=== PATIENT | female | born 1995 | race Caucasian/White ===

== ENCOUNTER 2022-04-17 10:31 | Emergency (ER) | payer OTHER ==
[~2022-04-17] VITALS: Ht 167.6 cm; Wt 56.7 kg
--- OUTSIDE RECORDS SUMMARY | 2022-04-17 12:34 | XMS ---
PreManage Notification: FLORA MUELLER Security [facility] [employer] Professional Events No recent Security Events currently on file CRITERIA MET - PDMP - 6 ED Visits in 6 Months [facility], Clinic/Center: [facility] PHONE: Unknown [facility] Current PHONE: Unknown [facility] PHONE: [phone] Ruben has no Care Guidelines for this patient. EShanita VISIT COUNT ([address] [facility] 1 ISABEL Newby TOTAL 6 NOTE: Visits indicate total known visits. ED/UCC VISIT TRACKING (12 MO.) 04/17/2022 10:32 [facility] TYPE: Emergency COMPLAINT: - ABNORMAL LABS 02/19/2022 19:38 [facility] TYPE: Emergency DIAGNOSES: - Eating Disorder - Alcohol Problem - medic - Suicidal ideations - Alcohol abuse, uncomplicated - Suicidal 01/10/2022 09:50 [facility] TYPE: Emergency DIAGNOSES: - Alcohol Problem - Unconcious 01/10/2022 01:44 [facility] TYPE: Emergency DIAGNOSES: - [id number] - Alcohol use, unspecified with intoxication, unspecified - Abrasion of other part of head, initial encounter - Altered Mental Status 01/09/2022 14:05 [facility] TYPE: Emergency DIAGNOSES: - Altered Mental Status - Medic 1 - Alcohol use, unspecified with intoxication, unspecified 12/23/2021 18:18 [facility] TYPE: Emergency COMPLAINT: - Abnormal Lab DIAGNOSES: - Suicidal ideations - Anorexia nervosa, binge eating/purging type - Abnormal Lab - Eating Disorder - Hypokalemia INPATIENT VISIT TRACKING (12 MO.) 01/20/2022 17:41 [facility] TYPE: Behavioral Health DIAGNOSES: - Bipolar 01/10/2022 21:46 [facility] TYPE: General Medicine DIAGNOSES: - AMS, INTOXICATED, LACTIC ACIDOSIS - Alcohol use, unspecified with intoxication, unspecified [email or web address]
[2022-04-17] MEDS ORDERED: K-TAB ER20 MEQ PO (13:43)
--- NOTE | 2022-04-18 12:55 | EKG ---
[facility] [address] [facility] [place], [place] [address] Signed Normal sinus rhythm Prolonged QT Abnormal ECG No previous ECGs available Confirmed by JOHN CHAVEZ MD ([id number]) on 04/18/2022 12:55:40 PM Electronically Signed By: JOHN CHAVEZ MD 04/18/22 1255 PATIENT NAME: FLORA MUELLER Electrocardiogram DATE OF : [birth year] PHYSICIAN: JOHN CHAVEZ MD REPORT #: [id number] REPORT IS CONFIDENTIAL AND NOT TO BE RELEASED WITHOUT AUTHORIZATION
== END 2022-04-17 14:00 | disposition home or self-care (01) ==
LOC: ED 10:31
DX: E87.6 Hypokalemia (principal); F50.2 Bulimia nervosa; F10.21 Alcohol dependence, in remission
CPT/HCPCS: 36415; 80048; 83735; 93005; 96374; 99285-25; A9270; J3480